=== PATIENT | male | born 1980 | race Caucasian/White ===

== ENCOUNTER 2024-06-27 10:28 | Outpatient (CLI) | payer BC, SELFPAY ==
--- NOTE | ~2024-06-27 | XR_ITS ---
Thoracic spine: Clinical Indication: Back pain AP and lateral views were performed. No fracture is seen. There is normal alignment of the vertebrae. The intervertebral disc spaces appe ar normal. Paravertebral soft tissues appear normal. Impression: No significant abnormalities noted. Reviewed, dictated and finalized at [facility]. ALLERGY IMMUNOLOGY Impression: No significant abnormalities noted.
--- NOTE | ~2024-06-27 | XR_ITS ---
SINGLE AP VIEW PELVIS Ordering provider: Alberto Reynoso, DC CCST History: . Right SI joint pain . Comparison: None. FINDINGS: BONES: No acute fracture or dislocation. HIP JOINT SPACES: Normal. SACROILIAC JOINT SPACES/LUMBAR SPINE: The sacroiliac joint spaces are normal. Normal visualized lower lumbar spine. PUBIC SYMPHYSIS: Normal. SOFT TISSUES: Normal. IMPRESSION: No acute osseous abnormality pelvis. Reviewed, dictated and finalized at location A. ICIAN SPECIALIST
--- NOTE | ~2024-06-27 | XR_ITS ---
Lumbosacral Spine: AP and lateral views Clinical History: Pain Findings: There is mild dextro scoliosis. The vertebral bodies and posterior elements are intact. T he intervertebral disc spaces are preserved. There is moderate facet arthropathy at the lower lumbar spine. The sacroiliac joints are normally outlined. Impression: Moderate facet arthropathy at the lower lumbar spine. Mild dextro scoliosis. Reviewed, dictated and finalized at location . PATIAL DEVELOPER Impression: Moderate facet arthropathy at the lower lumbar spine. Mild dextro scoliosis.
--- NOTE | ~2024-06-27 | XR_ITS ---
[id number] Ordering provider: Alberto Reynoso, DC CCST History: . Neck pain . Comparison: None. FINDINGS: VERTEBRAL BODIES: Normal height and alignment. No visible fracture or subluxation. The dens is intact . DISK SPACES: Severe narrowing of the disc C5-C6 and C6-C7. Uncovertebral joint osteoarthritic changes at the 2 levels. PARASPINOUS SOFT TISSUES: No prevertebral soft tissue swelling. IMPRESSION: No acute osseous abnormality cervical spine. Severe degenerative disc disease at the level of C5-C6 and C6-C7. Reviewed, dictated and finalized at location A. SHIFT MANAGER
== END 2024-06-27 10:29 | disposition home or self-care (01) ==
LOC: MICIMG 10:33
PROVIDERS: PCP Chiropractor; Visit Provider Chiropractor
DX: M47.816 Spondylosis without myelopathy or radiculopathy, lumbar region (principal); M41.86 Other forms of scoliosis, lumbar region; M53.3 Sacrococcygeal disorders, not elsewhere classified
CPT/HCPCS: 72040; 72070; 72100; 72170